=== PATIENT | female | born 1960 | race Caucasian/White ===

== ENCOUNTER 2016-12-09 12:08 | Emergency (ER) | payer OTHER ==
[2016-12-09] MEDS ORDERED: LORazepam 1 MG TAB ONE (13:02)
--- NOTE | 2016-12-09 13:04 | EDPHY ---
H & P Stated Complaint: Under a lot of stress,h/a, BP up HPI/ROS: CHIEF COMPLAINT: High blood pressure, headache HISTORY OF PRESENT ILLNESS: This is a 56-year-old female with a history of hypertension for which she takes losartan, amlodipine, and hydrochlorothiazide. She missed her antihypertensive doses yesterday morning but took them on schedule this morning. She developed a headache this morning and felt slightly off, prompting her to check her blood pressure. She had pressures as high as 200/120. She had this double checked by a fire department employee--her readings seemed to be accurate. She had some mild chest pain. She denies shortness of breath. Her continued elevated high blood pressure prompted her to come to the emergency department. 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 She reports being under an inordinate amount of stress. REVIEW OF SYSTEMS: A ten point review of systems was performed and is negative with the exception of the items mentioned in the HPI. Source: Patient, Family Exam Limitations: No limitations - Personal History Current Tetanus Diphtheria and Acellular Pertussis (TDAP): Yes - Medical/Surgical History PMH: 1. Hypertension 2. 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 Sleep apnea 4. Vaginal hysterectomy 5. Swine flu Hx Renal Disease: Yes - Social History Smoking Status: Never smoked Alcohol Use: Rarely Drug Use: None Additional Social History: She works in [employer] for the [employer]. She is here with her . - Physical Exam Exam: General Appearance: Alert. Vital signs reviewed. Blood pressure 170/98 at triage. Blood pressure 149/91 at the time of my evaluation. Eyes: Pupils equal and round, no conjunctival injection, no discharge. Anicteric. ENT, Mouth: Mucous membranes are moist, no oropharyngeal erythema or edema. Neck: No lymphadenopathy, supple. Trachea midline. Respiratory: Lungs are clear to auscultation; no wheezes, rales, or rhonchi. Cardiovascular: Regular rate and rhythm; no murmur, rub, or gallop. Gastrointestinal: Abdomen is soft and nontender, no masses or organomegaly, bowel sounds normal. Skin: Warm and dry, no rashes on exposed skin, normal color. Back: Nontender to palpation over the thoracolumbar spine. No CVAT. Extremities: No lower extremity edema, no calf tenderness or swelling. Neurological: Alert and oriented. Moving all four extremities easily and equally. Cranial nerves II through XII are examined and are intact (visual acuity not tested). Strength is 5 over 5 bilaterally with testing of all major motor groups. Sensation is intact to light touch over all 4 extremities. Psychiatric: Normal affect. Constitutional: Initial Vital Signs Temperature (C) 36.6 C 12/09/16 12:15 Heart Rate 70 12/09/16 12:15 Respiratory Rate 18 12/09/16 12:15 Blood Pressure 170/98 H 12/09/16 12:15 O2 Sat (%) 95 12/09/16 12:15 O2 Delivery Mode Room Air Allergies/Adverse Reactions: Penicillins Allergy (Intermediate, Verified 12/09/16 12:26) Hives IV contrast Allergy (Severe, Uncoded 12/09/16 12:26) Anaphylaxis Home Medications: Medication Instructions Recorded FLUoxetine [PROzac] 10 mg PO 12/09/16 Hydrochlorothiazide [HCTZ (*)] 25 mg PO DAILY 12/09/16 LORazepam [Ativan (*)] 0.5 mg PO 12/09/16 LORazepam [Ativan] 0.5 mg PO Q8HRS PRN #10 tablet 12/09/16 amLODIPine BESYLATE [Norvasc 5 mg 5 mg PO DAILY 12/09/16 (*)] Medical Decision Making - Diagnostics EKG Interpretation: The 12 lead EKG was interpreted by myself. See hard copy and/or "tracemaster" electronic copy for interpretation. Sinus rhythm, rate 67. Imaging Results: I viewed the chest xray in PACS. My interpretation: [facility]. Imaging: I viewed and interpreted images myself ED Course/Re-evaluation: 56-year-old with hypertension who missed 1 dose of her medications, yesterday. She was hypertensive on arrival with improvement after receiving Ativan. She is under great deal of stress and was feeling anxious. She has used Ativan in the past once before for stress. Will search for end-organ damage. CBC, chemistries, troponin WNL (potassium very slightly low). EKG without ischemic changes. Urine not analyzed. Her headache resolved in ED. BP improved but still not normal. I do not find evidence of end organ damage. I am writing a prescription for a small quantity to Ativan for her to use for stress relief in the immediate. We discussed other approaches to stress relief. She understands the importance of BP control and will follow up with her PCP. BP in the ED does not meet criteria for hypertensive urgency (180/110 is considered urgency without symptoms of end organ damage) or hypertensive emergency. Differential Diagnosis: I considered a ddx of hypertension that includes but is not limited to essential hypertension, renally induced HTN, endocrine induced HTN, neurologically induced HTN, medication noncompliance, sleep apnea. I do not think that admission is needed, as her blood pressure is improved and her symptoms ([place]) resolved. I am not recommending neuro-imaging at this point in time. - Data Points Laboratory Results: Laboratory Results 12/09/16 13:45 12/09/16 13:45 Medications Given: Discontinued Medications Lorazepam (Ativan) 1 mg PO EDNOW ONE Stop: 12/09/16 13:07 Last Admin: 12/09/16 13:09 Dose: 1 mg Departure - Departure Disposition: Home, Routine, Self-Care Clinical Impression: Hypertension Qualifiers: Hypertension type: essential hypertension Qualified Code(s): I10 - Essential ( primary) hypertension Condition: Good Instructions: Hypertension (ED) Additional Instructions: 1. Continue to take your medications as prescribed. 2. Follow up with your primary care provider next week for continued management of your high blood pressure. 3. Take Ativan as prescribed as needed for anxiety. Referrals: Daniella Chappell MD [Medical Doctor] - As per Instructions Prescriptions: LORazepam [Ativan] 0.5 mg PO Q8HRS PRN #10 tablet PRN Reason: Anxiety Report Scribed for: Phylicia Cristobal Report Scribed by: Luna Parham Date of Report: 12/09/16 Time of Report: 15:02 Physician Review and Approval Statement: 12/09/16 13:04 Portions of this note were transcribed by the rn medical surgical. I, Dr. Phylicia Cristobal, personally performed the history, physical exam, and medical decision- making; and confirmed the accuracy of the information in the transcribed note.
[2016-12-09] MEDS ORDERED: LORazepam 1 MG TAB PO ONE (13:06)
--- NOTE | 2016-12-09 13:44 | CPEKG ---
Heart Rate: 67 RR Interval: 896 P-R Interval: 176 QRSD Interval: 90 QT Interval: 428 QTC Interval: 452 P [place]: 58 QRS [place]: 64 T Wave [place]: 49 EKG Severity - NORMAL ECG - EKG Impression: SINUS RHYTHM Electronically Signed By: Phylicia Cristobal 09-Dec-2016 16:43:04
[2016-12-09 13:55] LABS: % IMMATURE GRANULYOCYTES 0.3 % (0.0-1.1); ABSOLUTE IMMATURE GRANULOCYTES 0.02 10^3/uL (0.00-0.10); ADD DIFF? NO; ADD MORPH? NO; ADD SCAN? NO; ATYPICAL LYMPHOCYTE FLAG 10 (0-99); FRAGMENT RBC FLAG 0 (0-99); HEMOGLOBIN 14.2 g/dL (12.6-16.3); LEFT SHIFT FLG 0 (0-99); LIPEMIA HEMOLYSIS FLAG 80 (0-99); MEAN CELL HEMOGLOBIN 26.6 pg (27.9-34.1); MEAN CELL VOLUME 80.5 fL (81.5-99.8); MEAN PLATELET VOLUME 9.5 fL (8.7-11.7); PLATELET CLUMPS FLAG 0 (0-99); PLATELET COUNT 264 10^3/uL (150-400); RED BLOOD CELL COUNT 5.34 10^6/uL (4.18-5.33); RED CELL DISTRIBUTION WIDTH 13.3 % (11.5-15.2)
[2016-12-09 14:04] LABS: ANION GAP 15 mEq/L (8-16); CARBON DIOXIDE 25 mEq/l (22-31); CHLORIDE 101 mEq/L (97-110); CREATININE 0.7 mg/dL (0.6-1.0); GLOMERULAR FILTRATION RATE > 60; GLUCOSE 109 mg/dL (70-100); POTASSIUM 3.4 mEq/L (3.5-5.2); SODIUM 141 mEq/L (134-144)
[2016-12-09 14:15] LABS: TROPONIN I < 0.012 ng/mL (0-0.034)
[2016-12-09 15:12] VITALS: RESP 16
[2016-12-09 15:38] VITALS: BP 146/96; PULSE 64; TEMP 98.2; O2SAT 96
== END 2016-12-09 15:38 | disposition home or self-care (01) ==
DX: I10 Essential (primary) hypertension (principal)